=== PATIENT | female | born 1965 | race Caucasian/White ===

== ENCOUNTER 2019-02-27 06:48 | Day surgery (SDC) | payer OTHER ==
[~2019-02-27] VITALS: Ht 162.6 cm; Wt 61.2 kg
[2019-02-27] MEDS ORDERED: LIDOCAINE 2% 100 MG/5 ML UJET TP ONE (08:18)
[2019-02-27] MEDS ORDERED: MIDAZOLAM 2 MG/2 ML VIAL ONE (08:18)
[2019-02-27] MEDS ORDERED: fentaNYL 0.05 MG/ML VIAL ONE (08:18)
[2019-02-27] MEDS ORDERED: MIDAZOLAM 2 MG/2 ML VIAL IVP ONE (09:55)
[2019-02-27] MEDS ORDERED: fentaNYL 0.05 MG/ML VIAL IVP ONE (09:55)
== END 2019-02-27 09:43 | disposition home or self-care (01) ==
LOC: MOR 06:48 → MMU 06:48 → MOR 09:43
PROVIDERS: ATTEND Internal Medicine Gastroenterology
DX: Z12.11 Encounter for screening for malignant neoplasm of colon (principal); K21.9 Gastro-esophageal reflux disease without esophagitis; K31.89 Other diseases of stomach and duodenum
CPT/HCPCS: 36415; 43239; 45378; 86677; J2250; J3010

== ENCOUNTER 2021-03-31 16:19 | Emergency (ER) | payer OTHER, SELFPAY ==
[~2021-03-31] VITALS: Ht 162.6 cm; Wt 59.0 kg
--- NOTE | 2021-03-31 17:00 | NUR ---
PT TO AWAIT IN TENT
[2021-03-31 17:04] VITALS: BP 134/78
[2021-03-31] MEDS ORDERED: ONDANSETRON 4 MG/2 ML VIAL IVP ONE (19:10)
[2021-03-31] MEDS ORDERED: KETOROLAC 15 MG/ML VIAL IVP ONE (19:10)
[2021-03-31] MEDS ORDERED: diphenhydrAMINE 50 MG/ML VIAL IVP ONE (19:10)
[2021-03-31] MEDS ORDERED: NACL 0.9% 1,000 ML IV ONE (19:10)
[2021-03-31 19:45] VITALS: BP 134/78
--- NOTE | 2021-03-31 19:45 | NUR ---
55 Y/O FEMALE PATIENT PRESENTS TO ED WITH HEADACHE, AND ABDOMINAL PAIN. PT STATES "I HAVE A HEADACHE OF 8/10 AND ABDOMINAL PAIN THAT DOES NOT RADIATE TO ANYWHERE ELSE. i ALSO FEEL SUPER NAUSEAOUS. IT ALL STARTED TODAY". DENIES V/D; SKIN IS PINK/WARM/DRY; AAOX4 WITH EVEN AND STEADY GAIT; LUNGS CLEAR BL; HR EVEN AND REGULAR; PT DENIES ANY FEVER, CP, SOB, OR COUGH AT THIS TIME; PATIENT STATES PAIN OF 8/10 HEADACHE AT THIS TIME; VSS; PATIENT POSITIONED FOR COMFORT; HOB ELEVATED; BEDRAILS UP X2; BED DOWN. ER MD MADE AWARE OF PT STATUS. NKA PMH: DENIES
--- NOTE | 2021-03-31 20:30 | NUR ---
COLLECTED NOVEL SWAB AND SENT TO LAB. LEFT AT THE COUNTER PER CLS.
[2021-03-31] MEDS ORDERED: ONDA-24 PO (21:44)
[2021-03-31] MEDS ORDERED: ACET-9500 PO (21:44)
--- NOTE | 2021-03-31 21:55 | NUR ---
d/c with VSS. d/c education given. opportunity to ask questionn given and answered. rx of excedrin and zofran given. IV site removed, bleeding controlled with sterile gauze and reinforced with tape.
== END 2021-03-31 21:55 | disposition home or self-care (01) ==
LOC: MED 16:19
DX: B34.9 Viral infection, unspecified (principal); Z20.822 Contact with and (suspected) exposure to COVID-19; R51.9 Headache, unspecified
CPT/HCPCS: 96361; 96374; 96375; 99284; J1200; J1885; J2405; U0003; J7030